=== PATIENT | male | born 1980 ===

== ENCOUNTER 2020-03-15 12:14 | Emergency (ER) | payer SELFPAY ==
--- NOTE | 2020-03-15 12:30 | EDM.PDOC ---
ED HPI GENERAL MEDICAL PROBLEM - General Chief Complaint: General Stated Complaint: ANXIETY Time Seen by Provider: 03/15/20 12:15 Source of Information: Reports: Patient History Limitations: Reports: No Limitations - History of Present Illness INITIAL COMMENTS - FREE TEXT/NARRATIVE: HISTORY AND PHYSICAL: History of present illness: Patient is a 39-year-old male who presents to the emergency room with complaints of anxiety. He has had anxiety for approximately 10 years. He had previously tried Zoloft and a few other medications to help with the symptoms associated with this. He did not like the side effects he felt with these medications and had put been put on Xanax. He last took this medication approximately 2 years ago, states he hadn't needed anything until this last week. 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 He attempted to get into the primary care clinic, they recommended he come to the emergency room for medication. His symptoms include feeling restless, shortness of breathe , and difficulty getting his words out. This has been happening 3 x this past week; lasting 30 minutes to an hour. He has been having to remove himself from the situation and calm his breathing down. He states it has been affecting his daily routine as he has not been able to work, and fear he is going to have another anxiety attack. He denies any thoughts of self-harm. He denies any alcohol or drug abuse. Review of systems: As per history of present illness and below otherwise all systems reviewed and negative. Past medical history: As per history of present illness and as reviewed below otherwise noncontributory. Surgical history: As per history of present illness and as reviewed below otherwise noncontributory. Social history: See social history for further information Family history: As per history of present illness and as reviewed below otherwise noncontributory. Physical exam: General: Well-developed and well-nourished 39-year-old male. Alert and oriented. Nontoxic-appearing, anxious appearing but in no acute distress. HEENT: Atraumatic, normocephalic, pupils equal and reactive bilaterally, negative for conjunctival pallor or scleral icterus, mucous membranes moist, TMs normal bilaterally, throat clear, neck supple, nontender, trachea midline. No drooling or trismus noted. No meningeal signs. No hot potato voice noted. Lungs: Clear to auscultation, breath sounds equal bilaterally, chest nontender. Heart: S1S2, regular rate and rhythm without overt murmur Abdomen: Soft, nondistended, nontender. Negative for masses or hepatosplenomegaly. Negative for costovertebral tenderness. Skin: Intact, warm, dry. No lesions or rashes noted. Extremities: Atraumatic, moves all extremities per self without difficulty or deficits, negative for cords or calf pain. Neurovascular unremarkable. Neuro: Awake, alert, oriented. Cranial nerves II through XII unremarkable. Cerebellum unremarkable. Motor and sensory unremarkable throughout. Exam nonfocal. Notes: I will provide a limited amount of Ativan. This short supply will get him through until he can be seen in the clinic. Information on appropriate follow- up was given. Medication and supportive care measures were reviewed and discussed. Voices understanding and is agreeable to plan of care. Denies any further questions or concerns at this time. Diagnostics: None Therapeutics: None Prescription: Ativan (#15) Impression: Anxiety Plan: 1. Take the medication as directed. Do not mix with alcohol or drugs. This medication may cause drowsiness so do not take it while driving. 2. Further medication refills will need to be done through primary care. Please establish care either here or back in [place] for reevaluation and further management of this. 3. Return to the ED as needed and as discussed. Definitive disposition and diagnosis as appropriate pending reevaluation and review of above. - Related Data Allergies Allergy/AdvReac Type Severity Reaction Status Date / Time No Known Allergies Allergy Verified 03/15/20 12:25 Home Meds: Home Meds LORazepam [Ativan] 1 mg PO BID PRN #15 tablet 03/15/20 [Rx] ED ROS GENERAL - Review of Systems Review Of Systems: Comprehensive ROS is negative, except as noted in HPI. ED EXAM, GENERAL - Physical Exam Exam: See Below (See dictation) Course - Vital Signs Last Recorded V/S: Last Vital Signs Temp 97.8 F 03/15/20 12:26 Pulse 88 03/15/20 12:26 Resp 18 03/15/20 12:26 BP 131/95 H 03/15/20 12:26 Pulse Ox 98 03/15/20 12:26 Departure - Departure Time of Disposition: 12:32 Disposition: Home, Self-Care 01 Clinical Impression: Anxiety - Discharge Information Prescriptions: LORazepam [Ativan] 1 mg PO BID PRN #15 tablet PRN Reason: Anxiety Referrals: PCP,None [Primary Care Provider] - Forms: ED Department Discharge Additional Instructions: The following information is given to patients seen in the emergency department who are being discharged to home. This information is to outline your options for follow-up care. We provide all patients seen in our emergency department with a follow-up referral. The need for follow-up, as well as the timing and circumstances, are variable depending upon the specifics of your emergency department visit. If you don't have a primary care physician on staff, we will provide you with a referral. We always advise you to contact your personal physician following an emergency department visit to inform them of the circumstance of the visit and for follow-up with them and/or the need for any referrals to a consulting specialist. The emergency department will also refer you to a specialist when appropriate. This referral assures that you have the opportunity for follow-up care with a specialist. All of these measure are taken in an effort to provide you with optimal care, which includes your follow-up. Under all circumstances we always encourage you to contact your private physician who remains a resource for coordinating your care. When calling for follow-up care, please make the office aware that this follow-up is from your recent emergency room visit. If for any reason you are refused follow-up, please contact the [facility] Emergency Department at and asked to speak to the emergency department charge nurse. [facility] Primary Care [address] [place] [address] [id number] [facility] [address] [place] [phone] 1. Take the medication as directed. Do not mix with alcohol or drugs. This medication may cause drowsiness so do not take it while driving. 2. Further medication refills will need to be done through primary care. Please establish care either here or back in [place] for reevaluation and further management of this. 3. Return to the ED as needed and as discussed. Sepsis Event Note - Focused Exam Vital Signs: Vital Signs Temp Pulse Resp BP Pulse Ox 03/15/20 12:26 97.8 F 88 18 131/95 H 98 Date Exam was Performed: 03/15/20 Time Exam was Performed: 12:35
== END 2020-03-15 12:38 | disposition home or self-care (01) ==
LOC: MW.ED 12:14
DX: F41.9 Anxiety disorder, unspecified (principal); Z79.899 Other long term (current) drug therapy
CPT/HCPCS: 99282; 99283